=== PATIENT | female | born 1945 | race Caucasian/White ===

== ENCOUNTER 2025-05-12 14:24 | Outpatient (CLI) | payer OTHER, SELFPAY | END 2025-05-12 14:25 | disposition home or self-care (01) | LOC: AMB 05-26 11:22 | PROVIDERS: Visit Provider Student in an Organized Health Care Education/Training Program | DX: S19.9XXA Unspecified injury of neck, initial encounter (principal); S49.91XA Unspecified injury of right shoulder and upper arm, initial encounter; S29.9XXA Unspecified injury of thorax, initial encounter; S79.911A Unspecified injury of right hip, initial encounter; S89.91XA Unspecified injury of right lower leg, initial encounter; V43.63XA Car passenger injured in collision with pick-up truck in traffic accident, initial encounter; Y92.410 Unspecified street and highway as the place of occurrence of the external cause | CPT/HCPCS: A0425; A0427 ==